=== PATIENT | female | born 1975 | race American Indian/Alaskan Native ===

== ENCOUNTER 2018-09-08 04:07 | Emergency (ER) | payer SELFPAY ==
[2018-09-08 05:04] LABS: Basophils # (Auto) 0.1 K/mm3 (0.0-0.1); Basophils % (Auto) 1.2 % (0.0-1.8); Eosinophils # (Auto) 0.2 K/mm3 (0.0-0.4); Eosinophils % (Auto) 2.8 % (0.0-4.3); Hematocrit 40.4 % (30.3-42.9); Hemoglobin 13.7 gm/dl (10.1-14.3); Lymphocytes # (Auto) 1.9 K/mm3 (1.2-5.4); Lymphocytes % (Auto) 32.4 % (13.4-35.0); Mean Corpuscular HGB Conc 34 % (30-34); Mean Corpuscular Volume 89 fl (79-97); Monocytes # (Auto) 0.9 K/mm3 (0.0-0.8); Monocytes % (Auto) 15.9 % (0.0-7.3); Platelet Count 239 K/mm3 (140-440); Red Blood Count 4.56 M/mm3 (3.65-5.03); Red Cell Distribution Width 16.1 % (13.2-15.2)
[2018-09-08 05:30] LABS: Alanine Aminotransferase 15 units/L (7-56); Albumin 4.4 g/dL (3.9-5); BUN/Creatinine Ratio 26; Blood Urea Nitrogen 18 mg/dL (7-17); Hemolysis Index 13
--- NOTE | 2018-09-08 07:42 | Emergency Department Report ---
ED Back Pain/Injury HPI - General Chief Complaint: Abdominal Pain Stated Complaint: VOMITING & PAIN IN PELVIC AREA Time Seen by Provider: 09/08/18 07:41 Source: patient Limitations: No Limitations - History of Present Illness Initial Comments: Patient is a 42-year-old -[place] female who came to the ER last night complaining of a sharp pain over her suprapubic area. She has some nausea. She's been here 9 hours and has had no vomiting. She has no vaginal bleeding or diarrhea. He has no fever. She states the pain gets worse with movement. Vital signs are normal on admission. 9 hours in the emergency room and a full workup the patient states that the pain is worse when she is at work and she needs a work note for today. Similar Symptoms Previously: No Place: home - Related Data Allergies Allergy/AdvReac Type Severity Reaction Status Date / Time No Known Allergies Allergy Verified 09/08/18 04:25 ED Review of Systems ROS: Stated complaint: VOMITING & PAIN IN PELVIC AREA Other details as noted in HPI ED Past Medical Hx - Past Medical History Medical history: hypertension Surgical history: other (cyst on neck) ED Back Pain Physical Exam - Exam General: Vital signs noted. No distress. Alert and acting appropriately. Back/Abdomen: No Abdominal Tenderness, No Perithoracic Tenderness, No Perilumbar Tenderness, No Sacroiliac Tenderness, No Flank Tenderness, No Straight Leg Raise Pain Neuro: Yes Normal Sensation, Yes Normal DTR's, Yes Normal Gait, No Motor Weakness Ed Back Pain Tests - Tests Tests: Normal UA ED Medical Decision Making - Lab Data Result diagrams: 09/08/18 04:37 09/08/18 04:37 - Medical Decision Making Labs 09/08/18 09/08/18 09/08/18 04:37 04:37 04:37 WBC 5.7 RBC 4.56 Hgb 13.7 Hct 40.4 MCV 89 MCH 30 MCHC 34 RDW 16.1 H Plt Count 239 Lymph % (Auto) 32.4 [place] % (Auto) 15.9 H Eos % (Auto) 2.8 Baso % (Auto) 1.2 Lymph # 1.9 [place] # 0.9 H Eos # 0.2 Baso # 0.1 Seg Neutrophils % 47.7 Seg Neutrophils # 2.7 Sodium 139 Potassium 3.9 Chloride 100.4 Carbon Dioxide 24 Anion Gap 19 BUN 18 H Creatinine 0.7 Estimated GFR > 60 BUN/Creatinine Ratio 26 Glucose 96 Calcium 10.0 Total Bilirubin 1.00 AST 18 ALT 15 Alkaline Phosphatase 56 Total Protein 7.7 Albumin 4.4 Albumin/Globulin Ratio 1.3 Lipase 29 HCG, Qual Negative Urine Color Urine Turbidity Urine pH Ur Specific [place] Urine Protein Urine Glucose (UA) Urine Ketones Urine Blood Urine Nitrite Urine Bilirubin Urine Urobilinogen Ur Leukocyte Esterase Urine WBC (Auto) Urine RBC (Auto) U Epithel Cells (Auto) Urine Bacteria (Auto) Urine Mucus 09/08/18 08:00 WBC RBC Hgb Hct MCV MCH MCHC RDW Plt Count Lymph % (Auto) [place] % (Auto) Eos % (Auto) Baso % (Auto) Lymph # [place] # Eos # Baso # Seg Neutrophils % Seg Neutrophils # Sodium Potassium Chloride Carbon Dioxide Anion Gap BUN Creatinine Estimated GFR BUN/Creatinine Ratio Glucose Calcium Total Bilirubin AST ALT Alkaline Phosphatase Total Protein Albumin Albumin/Globulin Ratio Lipase HCG, Qual Urine Color Yellow Urine Turbidity Slightly-cloudy Urine pH 5.0 Ur Specific [place] 1.036 H Urine Protein 30 mg/dl Urine Glucose (UA) Neg Urine Ketones 20 Urine Blood Neg Urine Nitrite Neg Urine Bilirubin Neg Urine Urobilinogen 2.0 Ur Leukocyte Esterase Neg Urine WBC (Auto) 1.0 Urine RBC (Auto) 4.0 U Epithel Cells (Auto) 4.0 Urine Bacteria (Auto) 1+ Urine Mucus 2+ Pt states she need for a work note. Patient being discharged home with [employer] follow-up. Critical care attestation.: If time is entered above; I have spent that time in minutes in the direct care of this critically ill patient, excluding procedure time. ED Disposition Clinical Impression: Abdominal pain Disposition: -01 TO HOME OR SELFCARE Is pt being admited?: No Does the pt Need Aspirin: No Condition: Stable Instructions: Abdominal Pain (ED) Additional Instructions: DIET TOLERATED MEDS ORDERED TODAY IN ER FOLLOW INSTRUCTIONS ON THE BOTTLE FOLLOW UP PCP WITHIN 48 HOURS TO ENSURE YOU ARE GETTING BETTER ACTIVITY TOLERATED MOTRIN OR TYLENOL FOR PAIN OR FEVER RETURN TO THE ER FOR WORSENING SYMPTOMS NOT RELIEVED BY YOUR MEDICATIONS. Referrals: JORDAN DUBON MD [Primary Care Provider] - 3-5 Days ALFIE HUFFMAN MD [Staff Physician] - 3-5 Days Forms: Work/School Release Form(ED) Time of Disposition: 09:27
[2018-09-08 09:00] LABS: Bacteria,Urine 1+ /HPF (Negative); Bilirubin,Urine NEG (Negative); Blood,Urine NEG (Negative); Color,Urine Yellow (Yellow); Mucus,Urine 2+ /HPF
[2018-09-08 09:56] VITALS: BP 152/92
== END 2018-09-08 09:55 | disposition home or self-care (01) ==
LOC: ED 04:07
DX: R10.2 Pelvic and perineal pain (principal); R11.0 Nausea
CPT/HCPCS: 36415; 80053; 81001; 83690; 84703; 85025; 99283

== ENCOUNTER 2019-05-01 08:24 | Emergency (ER) | payer SELFPAY ==
[2019-05-01 08:33] VITALS: BP 152/106
[2019-05-01] MEDS ORDERED: FAMOTIDINE 20 MG TAB PO ONE (08:36)
[2019-05-01] MEDS ORDERED: diphenhydrAMINE 25 MG CAP PO ONE ×2 (08:36→08:39)
[2019-05-01] MEDS ORDERED: methylPREDNISolone Sod Succinate 125 MG/2 ML INJ IM ONE (08:36)
[2019-05-01] MEDS ORDERED: methylPREDNISolone Sod Succinate 125 MG/2 ML INJ ONE (08:38)
[2019-05-01] MEDS ORDERED: FAMOTIDINE 20 MG TAB ONE (08:39)
[2019-05-01] MEDS ORDERED: IBUPROFEN 600 MG TAB PO ONE (08:44)
--- NOTE | 2019-05-01 11:04 | Emergency Department Report ---
- General Chief complaint: Allergic Reaction Stated complaint: RASH ALL OVER Time Seen by Provider: 05/01/19 10:45 Source: patient Mode of arrival: Ambulatory Limitations: No Limitations - History of Present Illness Initial comments: Patient is a 43-year-old female presents emergency room with complaints of a diffuse rash that began 2 days ago. She has associated itching. She denies any new soaps, detergents, medications, foods, lotions. She denies anyone else with the same rash. She denies sleeping in a different place. She denies any other symptoms. Patient states she has a past medical history of hypertension but has not been taking her medication. She states that she goes to [facility] for management of her blood pressure. She denies any allergies medications. - Related Data Previous Rx's Medication Instructions Recorded Last Taken Type Hydrocortisone [Hydrocortisone 1 applicatio TP TID 7 Days #1 05/01/19 Unknown Rx 2.5% OINT] oint...g. Prednisone [predniSONE 10 mg 10 mg PO .TAPER #1 tab.ds.pk 05/01/19 Unknown Rx (6-Day Pack, 21 Tabs)] diphenhydrAMINE [Benadryl CAP] 50 mg PO Q8HR PRN #20 capsule 05/01/19 Unknown Rx Allergies Allergy/AdvReac Type Severity Reaction Status Date / Time No Known Allergies Allergy Verified 05/01/19 08:38 Abscess Boil HPI - HPI Chief Complaint: Allergic Reaction Stated Complaint: RASH ALL OVER Time Seen by Provider: 05/01/19 10:45 Home Medications: Previous Rx's Medication Instructions Recorded Last Taken Type Hydrocortisone [Hydrocortisone 1 applicatio TP TID 7 Days #1 05/01/19 Unknown Rx 2.5% OINT] oint...g. Prednisone [predniSONE 10 mg 10 mg PO .TAPER #1 tab.ds.pk 05/01/19 Unknown Rx (6-Day Pack, 21 Tabs)] diphenhydrAMINE [Benadryl CAP] 50 mg PO Q8HR PRN #20 capsule 05/01/19 Unknown Rx Allergies/Adverse Reactions: Allergies Allergy/AdvReac Type Severity Reaction Status Date / Time No Known Allergies Allergy Verified 05/01/19 08:38 ED Review of Systems ROS: Stated complaint: RASH ALL OVER Other details as noted in HPI Comment: All other systems reviewed and negative ED Past Medical Hx - Past Medical History Hx Hypertension: Yes - Surgical History Additional Surgical History: cyst from neck. - Social History Smoking Status: Current Every Day Smoker Substance Use Type: None, Marijuana - Medications Home Medications: Home Medications Medication Instructions Recorded Confirmed Last Taken Type Hydrocortisone [Hydrocortisone 1 applicatio TP TID 7 Days #1 05/01/19 Unknown Rx 2.5% OINT] oint...g. Prednisone [predniSONE 10 mg 10 mg PO .TAPER #1 tab.ds.pk 05/01/19 Unknown Rx (6-Day Pack, 21 Tabs)] diphenhydrAMINE [Benadryl CAP] 50 mg PO Q8HR PRN #20 capsule 05/01/19 Unknown Rx ED Physical Exam - General Limitations: No Limitations General appearance: alert, in no apparent distress - Head Head exam: Present: atraumatic, normocephalic - Eye Eye exam: Present: normal appearance - ENT ENT exam: Present: mucous membranes moist - Neurological Exam Neurological exam: Present: alert, oriented X3 - Psychiatric Psychiatric exam: Present: normal affect, normal mood - Skin Skin exam: Present: warm, dry, other (small erythematous papules present diffusely, some areas of scabbing secondary to scratching, no necrosis, no drainage, no blistering, no sloughing of the skin) ED Course Vital Signs 05/01/19 08:31 Temperature 97.9 F Pulse Rate 92 H Respiratory 18 Rate Blood Pressure 152/106 O2 Sat by Pulse 100 Oximetry ED Medical Decision Making - Medical Decision Making Patient is a 43-year-old female presents emergency room with complaints of a diffuse rash that began 2 days ago. She has associated itching. She denies any new soaps, detergents, medications, foods, lotions. She denies anyone else with the same rash. She denies sleeping in a different place. She denies any other symptoms. Patient states she has a past medical history of hypertension but has not been taking her medication. She states that she goes to [facility] for management of her blood pressure. She denies any allergies medications. vitals with elevated blood pressure secondary to not taking medication, otherwise stable. on exam: small erythematous papules present diffusely, some areas of scabbing secondary to scratching, no necrosis, no drainage, no blistering, no sloughing of the skin. Patient given Benadryl, Solu-Medrol, Pepcid and symptoms improved. pt given prescription for Benadryl, steroids, hydrocortisone cream. Advised patient not use hydrocortisone cream more than a week. Advised patient to please use medication as prescribed. Follow-up with a primary care doctor the next 2-3 days. Please follow-up with a primary care doctor regarding your blood pressure. Take your blood pressure 3 times a day and keep a blood pressure log. Eat a low sodium diet, increase your water intake, incorporate daily exercise. Return to the emergency room for any new or worsening symptoms. - Differential Diagnosis contact derm, irritant derm, scabies, bed bugs, allergic reaction Critical care attestation.: If time is entered above; I have spent that time in minutes in the direct care of this critically ill patient, excluding procedure time. ED Disposition Clinical Impression: Rash, Elevated blood pressure reading Disposition: TO HOME OR SELFCARE Is pt being admited?: No Does the pt Need Aspirin: No Condition: Stable Instructions: Acute Rash (ED), Contact Dermatitis (ED) Additional Instructions: do not use hydrocortisone cream more than a week. please use medication as prescribed. Follow-up with a primary care doctor the next 2-3 days. Please follow-up with a primary care doctor regarding your blood pressure. Take your blood pressure 3 times a day and keep a blood pressure log. Eat a low sodium diet, increase your water intake, incorporate daily exercise. Return to the emergency room for any new or worsening symptoms. Prescriptions: diphenhydrAMINE [Benadryl CAP] 50 mg PO Q8HR PRN #20 capsule PRN Reason: itching Hydrocortisone [Hydrocortisone 2.5% OINT] 1 applicatio TP TID 7 Days #1 oint...g. Prednisone [predniSONE 10 mg (6-Day Pack, 21 Tabs)] 10 mg PO .TAPER #1 tab.ds.pk Referrals: [facility] [Outside] - 2-3 Days Forms: Work/School Release Form(ED) Time of Disposition: 11:05 Print Language: KYRGYZ
== END 2019-05-01 11:16 | disposition home or self-care (01) ==
LOC: ED 08:24
DX: R21 Rash and other nonspecific skin eruption (principal); I10 Essential (primary) hypertension; F17.200 Nicotine dependence, unspecified, uncomplicated; F12.10 Cannabis abuse, uncomplicated; Z79.899 Other long term (current) drug therapy
CPT/HCPCS: 96372; 99282; J2930

== ENCOUNTER 2021-05-30 11:25 | Emergency (ER) | payer SELFPAY ==
[2021-05-30 11:56] VITALS: BP 121/67
[2021-05-30] MEDS ORDERED: PANTOPRAZOLE 40 MG TAB PO ONE (11:58)
[2021-05-30] MEDS ORDERED: ACETAMINOPHEN 500 MG TAB PO ONE (11:58)
--- NOTE | 2021-05-30 11:59 | Emergency Department Report ---
ED General Adult HPI - General Chief complaint: Chest Pain Stated complaint: Chest wall pain PUI?: No Time Seen by Provider: 05/30/21 11:39 Source: patient, RN notes reviewed, old records reviewed Mode of arrival: Ambulatory Limitations: No Limitations - History of Present Illness Initial comments: The patient was evaluated in the emergency department for symptoms described in the history of present illness. He/she was evaluated in the context of the global COVID-19 pandemic, which necessitated consideration that the patient might be at risk for infection with the virus that causes COVID-19. Institutional protocols and algorithms that pertain to the evaluation of patients at risk for COVID-19 are in a state of rapid change based on information released by regulatory bodies including the CDC and federal and state organizations. These policies and algorithms were followed during the patient's care in the emergency department. Please note that these policies, procedures and recommendations changed on a rapid basis. During the history and physical examination, I am chaperoned by security operations analyst Kaiser Estrada Primary CARE doctor: [facility] The patient is a 45-year-old female, who consumes tobacco, who presents to the ER with complaint of 2 to 3 days constant anterior and central left-sided chest wall pain. The pain does not radiate to the back, arms or neck. There is no vomiting or diaphoresis or exertional shortness of breath. The pain increases with palpation, and laying flat. It decreases when sitting up and with rest. There is no personal family history of DVT/PE/CO/CAD. Patient denies travel, surgery, immobilization, oral contraceptive use, DVT/PE risk factors. Patient has not attempted any [id number] analgesia. 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 She denies additional injuries and complaints -: Gradual, days(s) Location: chest Severity scale (0 -10): 5 Quality: aching Consistency: constant Improves with: rest Worsens with: movement (Movement and palpation) Associated Symptoms: denies other symptoms - Related Data Previous Rx's Medication Instructions Recorded Last Taken Type Acetaminophen [Non-Aspirin Extra 500 mg PO Q6HR PRN #30 tablet 05/30/21 Unknown Rx Strength] Ibuprofen [Motrin] 600 mg PO Q8H PRN #30 tablet 05/30/21 Unknown Rx Nicotine Polacrilex [Nicotine Gum] 4 mg BC PRN #1 pack 05/30/21 Unknown Rx Allergies Allergy/AdvReac Type Severity Reaction Status Date / Time No Known Allergies Allergy Verified 05/30/21 11:57 ED Review of Systems ROS: Stated complaint: CHEST PAIN Other details as noted in HPI Constitutional: denies: fever Eyes: denies: eye discharge ENT: denies: epistaxis Respiratory: denies: cough, shortness of breath Cardiovascular: chest pain Gastrointestinal: denies: abdominal pain, nausea, vomiting, diarrhea, hematem esis, melena, hematochezia Genitourinary: denies: dysuria Neurological: denies: weakness Psychiatric: anxiety Hematological/Lymphatic: denies: easy bleeding ED Past Medical Hx - Past Medical History Hx Hypertension: Yes - Surgical History Additional Surgical History: cyst from neck. - Social History Smoking Status: Current Every Day Smoker Substance Use Type: None, Marijuana - Medications Home Medications: Home Medications Medication Instructions Recorded Confirmed Last Taken Type Acetaminophen [Non-Aspirin Extra 500 mg PO Q6HR PRN #30 tablet 05/30/21 Unknown Rx Strength] Ibuprofen [Motrin] 600 mg PO Q8H PRN #30 tablet 05/30/21 Unknown Rx Nicotine Polacrilex [Nicotine Gum] 4 mg BC PRN #1 pack 05/30/21 Unknown Rx ED Physical Exam - General Limitations: No Limitations General appearance: alert, anxious - Head Head exam: Present: atraumatic, normocephalic - Eye Eye exam: Present: normal appearance, EOMI. Absent: nystagmus - ENT ENT exam: Present: normal exam, normal orophraynx, mucous membranes moist, normal external ear exam - Neck Neck exam: Present: normal inspection, full ROM. Absent: tenderness, meningismus - Respiratory Respiratory exam: Present: normal lung sounds bilaterally, chest wall tenderness, other (Reproducible chest wall tenderness. Chaperoned by security operations analyst Kaiser Estrada). Absent: respiratory distress, wheezes, rales, rhonchi, stridor - Cardiovascular Cardiovascular Exam: Present: regular rate, normal rhythm, normal heart sounds. Absent: bradycardia, tachycardia, irregular rhythm, systolic murmur, diastolic murmur, rubs, gallop - GI/Abdominal GI/Abdominal exam: Present: soft. Absent: distended, tenderness, guarding, rebound, rigid, pulsatile mass - Extremities Exam Extremities exam: Present: normal inspection, full ROM, other (2+ pulses noted in the bilateral upper and lower extremities. There is no palpable cord. negative Homans sign. Muscular compartments are soft. The pelvis is stable.). Absent: pedal edema, calf tenderness - Back Exam Back exam: Present: normal inspection. Absent: tenderness, CVA tenderness (R), CVA tenderness (L), paraspinal tenderness, vertebral tenderness - Neurological Exam Neurological exam: Present: alert, oriented X3, normal gait, other (No facial droop. Tongue midline. Extraocular movements intact bilaterally. Facial sensation intact to light touch in V1, V2, V3 distribution bilaterally. 5 and a 5 strength in 4 extremities. Sensation intact to light touch in 4 extremities.). Absent: motor sensory deficit - Psychiatric Psychiatric exam: Present: anxious - Skin Skin exam: Present: warm, dry, intact, normal color. Absent: rash ED Course Vital Signs 05/30/21 05/30/21 11:29 11:55 Temperature 98.7 F 98.4 F Pulse Rate 82 69 Respiratory 18 16 Rate Blood Pressure 171/102 121/67 [Right] O2 Sat by Pulse 98 99 Oximetry - Reevaluation(s) Reevaluation #1: 05/30/21 12:29 Differential diagnosis, including but not limited to: GERD, gastritis, hiatal hernia, pneumonia, costochondritis, coronary artery disease Assessment and plan: 45-year-old female, who is not currently tachycardic, tachypneic or hypoxic, who denies DVT and pulmonary embolism risk factors, PERC negative ,who is low risk by Wells criteria for pulmonary embolism, EKG not consistent with STEMI in the context of 2 to 3 days and constant chest wall pain, troponin negative x1 in the context of days of symptoms. Given that patient has been having pain for greater than 8 hours (2 to 3 days), myocardial infarction may be ruled out with 1 set of troponin/cardiac enzymes as per the [employer] clinical policy. Patient has equal pulses in the upper and lower extremities, no pulsatile abdominal mass, and an unremarkable x-ray of the chest, therefore, aortic disease is very unlikely. Patient at low risk for major adverse cardiac event as per heart score. Given reproducibility, history and physical, do not have a high suspicion for GERD, gastritis, hiatal hernia at this time. Pneumonia is unlikely given history, physical, and x-ray findings. This is most likely costochondritis. Reassurance provided. Advised to follow- up with outpatient cardiology and/or primary care within the next 2 to 3 days. Also counseled to discontinue tobacco consumption 05/30/21 14:20 X-ray of the chest unremarkable. Laboratory studies unremarkable. Patient felt improved after pain medication. Resting comfortably in stretcher, in no acute distress. Suitable to follow-up as an outpatient. ED Medical Decision Making - Lab Data Result diagrams: 05/30/21 12:54 05/30/21 12:54 Vital Signs 05/30/21 05/30/21 11:29 11:55 Temperature 98.7 F 98.4 F Pulse Rate 82 69 Respiratory 18 16 Rate Blood Pressure 171/102 121/67 [Right] O2 Sat by Pulse 98 99 Oximetry Vital Signs 05/30/21 05/30/21 11:29 11:55 Temperature 98.7 F 98.4 F Pulse Rate 82 69 Respiratory 18 16 Rate Blood Pressure 171/102 121/67 [Right] O2 Sat by Pulse 98 99 Oximetry Lab Results 05/30/21 05/30/21 05/30/21 Range/Units 12:54 12:54 12:54 WBC 5.1 (4.5-11.0) K/mm3 RBC 4.52 (3.65-5.03) M/mm3 Hgb 13.4 (10.1-14.3) gm/dl Hct 41.0 (30.3-42.9) % MCV 91 (79-97) fl MCH 30 (28-32) pg MCHC 33 (30-34) % RDW 16.7 H (13.2-15.2) % Plt Count 245 (140-440) K/mm3 PT (12.2-14.9) Sec. INR (0.87-1.13) Sodium 136 L (137-145) mmol/L Potassium 3.8 (3.6-5.0) mmol/L Chloride 101.7 (98-107) mmol/L Carbon Dioxide 24 (22-30) mmol/L Anion Gap 14 mmol/L BUN 15 (7-17) mg/dL Creatinine 0.5 L (0.6-1.2) mg/dL Estimated GFR > 60 ml/min BUN/Creatinine Ratio 30 % Glucose 81 (65-100) mg/dL Calcium 10.0 (8.4-10.2) mg/dL Troponin T < 0.010 (0.00-0.029) ng/mL HCG, Qual Negative (Negative) 05/30/21 Range/Units Unknown WBC (4.5-11.0) K/mm3 RBC (3.65-5.03) M/mm3 Hgb (10.1-14.3) gm/dl Hct (30.3-42.9) % MCV (79-97) fl MCH (28-32) pg MCHC (30-34) % RDW (13.2-15.2) % Plt Count (140-440) K/mm3 PT 12.1 L (12.2-14.9) Sec. INR 0.81 L (0.87-1.13) Sodium (137-145) mmol/L Potassium (3.6-5.0) mmol/L Chloride (98-107) mmol/L Carbon Dioxide (22-30) mmol/L Anion Gap mmol/L BUN (7-17) mg/dL Creatinine (0.6-1.2) mg/dL Estimated GFR ml/min BUN/Creatinine Ratio % Glucose (65-100) mg/dL Calcium (8.4-10.2) mg/dL Troponin T (0.00-0.029) ng/mL HCG, Qual (Negative) - EKG Data -: EKG Interpreted by Ks EKG shows normal: sinus rhythm Rate: normal - EKG Data When compared to previous EKG there are: previous EKG unavailable 05/30/21 12:29 The EKG is interpreted at 11: 46 Sinus rhythm, 97 bpm. Normal axis, normal intervals, high left ventricular voltage and motion artifact. Not a STEMI. No prior for comparison. Normal P wave axis. - Radiology Data Radiology results: pending, report reviewed, image reviewed CHEST 2 VIEWS INDICATION / CLINICAL INFORMATION: Chest Pain. COMPARISON: None available. FINDINGS: SUPPORT DEVICES: None. HEART / MEDIASTINUM: No significant abnormality. LUNGS / PLEURA: No significant pulmonary or pleural abnormality. No pneumothorax. ADDITIONAL FINDINGS: No significant additional findings. IMPRESSION: 1. No acute findings. Signer Name: Caleb Santos MD Si gned: 05/30/2021 12:53 PM Workstation Name: [email or web address] Critical care attestation.: If time is entered above; I have spent that time in minutes in the direct care of this critically ill patient, excluding procedure time. ED Disposition Clinical Impression: Chest wall pain, Encounter for tobacco use cessation counseling Disposition: HOME / SELF CARE / HOMELESS Is pt being admited?: No Does the pt Need Aspirin: No Condition: Good Instructions: Costochondritis Additional Instructions: Please take the pain medications as needed and directed. Discontinue tobacco consumption/smoking, and use the nicotine gum to assist with tobacco cessation. Recommend follow-up with your primary care doctor or dividend clerk within the next 3 to 4 days for repeat checkup and evaluation. Avoid consumption of heavy and spicy foods and alcohol. Advance diet as tolerated. Please return to the emergency room right away with new pain, worsened pain, migration of pain, projectile vomiting, change in mental status, confusion, inability tolerate liquid feeds, new, worsened or different symptoms not present on the initial emergency room evaluation Prescriptions: Ibuprofen [Motrin] 600 mg PO Q8H PRN #30 tablet PRN Reason: Pain Nicotine Polacrilex [Nicotine Gum] 4 mg BC PRN #1 pack Acetaminophen [Non-Aspirin Extra Strength] 500 mg PO Q6HR PRN #30 tablet PRN Reason: Pain , Severe (7-10) Referrals: [facility] [Provider Group] - 3-5 Days [facility] [Provider Group] - 3-5 Days [facility] [Provider Group] - 3-5 Days Forms: Work/School Release Form(ED) Heart Score - HEART Score History: Slightly suspicious EKG: Non-specific Age: < 45 Risk factors: 1-2 risk factors Troponin: < normal limit HEART Score: 2 - EKG Read Time Time EKG Completed: 11:45 EKG Read Time: 11:45 - Critical Actions Critical Actions: 0-3 pts:0.9-1.7%risk of adverse cardiac event.Candidate for discharge
[2021-05-30 13:09] LABS: Hemoglobin 13.4 gm/dl (10.1-14.3); Mean Corpuscular HGB Conc 33 % (30-34); Mean Corpuscular Volume 91 fl (79-97); Platelet Count 245 K/mm3 (140-440); Red Blood Count 4.52 M/mm3 (3.65-5.03); Red Cell Distribution Width 16.7 % (13.2-15.2)
[2021-05-30 13:20] LABS: INR 0.81 (0.87-1.13)
[2021-05-30 13:41] LABS: Blood Urea Nitrogen 15 mg/dL (7-17); Hemolysis Index 10
[2021-05-30 13:43] LABS: BUN/Creatinine Ratio 30
--- NOTE | 2021-05-30 13:57 | XRay Report ---
CHEST 2 VIEWS INDICATION / CLINICAL INFORMATION: Chest Pain. COMPARISON: None available. FINDINGS: SUPPORT DEVICES: None. HEART / MEDIASTINUM: No significant abnormality. LUNGS / PLEURA: No significant pulmonary or pleural abnormality. No pneumothorax. ADDITIONAL FINDINGS: No significant additional findings. IMPRESSION: 1. No acute findings. Signer Name: Caleb Santos MD Signed: 05/30/2021 1:53 PM Workstation Name: [id number]
[2021-05-30] MEDS ORDERED: IBUPROFEN 400 MG TAB PO ONE (14:20)
--- NOTE | 2021-06-01 14:27 | Electrocardiograph Report ---
[facility] Test Date: 2021-05-30 Test Time: 11:45:03 Pat Name: LAURIE DHILLON Department: Room: Gender: F Commercial Marketing Specialist: JALEN : 1975 Requested By: EDWARD KELLY Order Number: [id number] Reading MD: Steff Rose Measurements Intervals Brooks Rate: 97 P: 80 WV: 150 QRS: 70 QRSD: 74 T: 64 QT: 330 QTc: 419 Interpretive Statements Sinus rhythm Right atrial enlargement Consider left ventricular hypertrophy No previous ECG available for comparison Electronically Signed On 06-01-2021 14:27:38 EST by Steff Rose
== END 2021-05-30 15:11 | disposition home or self-care (01) ==
LOC: ED 11:25
DX: R07.89 Other chest pain (principal); Z71.6 Tobacco abuse counseling; I10 Essential (primary) hypertension; F17.200 Nicotine dependence, unspecified, uncomplicated; Z79.899 Other long term (current) drug therapy; Z98.890 Other specified postprocedural states
CPT/HCPCS: 36415; 71046; 80048; 84484; 84703; 85027; 85610; 93005; 93010; 99284

== ENCOUNTER 2021-06-22 12:09 | Emergency (ER) | payer SELFPAY ==
[2021-06-22 12:15] VITALS: BP 112/81
[2021-06-22] MEDS ORDERED: ASPIRIN 325 MG TAB PO ONE (12:22)
[2021-06-22] MEDS ORDERED: HYDROcodone/ACETAMINOPHEN 5-325 MG TAB PO ONE (12:22)
--- NOTE | 2021-06-22 12:59 | XRay Report ---
CHEST 2 VIEWS INDICATION: Chest Pain. COMPARISON: 05/30/2021 FINDINGS: Support devices: None. Heart: Within normal limits. Lungs/pleura: No acute air space or interstitial disease. No pneumothorax. Additional findings: None. IMPRESSION: No acute findings. No change since 05/30/2021. Signer Name: Ivan Goldman Jr, MD Signed: 06/22/2021 12:55 PM Workstation Name: [id number]
[2021-06-22 13:16] LABS: Eosinophils # (Auto) 0.1 K/mm3 (0.0-0.4); Eosinophils % (Auto) 1.6 % (0.0-4.3); Hematocrit 40.5 % (30.3-42.9); Hemoglobin 13.3 gm/dl (10.1-14.3); Lymphocytes # (Auto) 1.3 K/mm3 (1.2-5.4); Lymphocytes % (Auto) 30.1 % (13.4-35.0); Mean Corpuscular HGB Conc 33 % (30-34); Mean Corpuscular Volume 92 fl (79-97); Monocytes # (Auto) 0.6 K/mm3 (0.0-0.8); Monocytes % (Auto) 14.5 % (0.0-7.3); Platelet Count 228 K/mm3 (140-440); Red Blood Count 4.38 M/mm3 (3.65-5.03); Red Cell Distribution Width 16.5 % (13.2-15.2)
[2021-06-22 13:33] LABS: Alanine Aminotransferase 15 units/L (7-56); Albumin 4.3 g/dL (3.9-5); Blood Urea Nitrogen 13 mg/dL (7-17); Hemolysis Index 16
[2021-06-22 14:10] LABS: BUN/Creatinine Ratio 19
--- NOTE | 2021-06-22 14:19 | Emergency Department Report ---
ED Chest Pain HPI - General Chief Complaint: Chest Pain Stated Complaint: CHEST PAIN Time Seen by Provider: 06/22/21 12:17 Source: patient Mode of arrival: Ambulatory Limitations: No Limitations - History of Present Illness Initial Comments: pt reports sudden onset chest pain this morning, describes as constant and sharp, points to sternal area, no radiation hapenned at work, hapenned before MD Complaint: chest pain -: Sudden, hour(s) Onset: during rest, during exertion Pain Location: left chest Pain Radiation: none Severity scale (0 -10): 8 Quality: sharp Consistency: intermittent - Related Data Previous Rx's Medication Instructions Recorded Last Taken Type Acetaminophen [Non-Aspirin Extra 500 mg PO Q6HR PRN #30 tablet 05/30/21 Unknown Rx Strength] Ibuprofen [Motrin] 600 mg PO Q8H PRN #30 tablet 05/30/21 Unknown Rx Nicotine Polacrilex [Nicotine Gum] 4 mg BC PRN #1 pack 05/30/21 Unknown Rx Allergies Allergy/AdvReac Type Severity Reaction Status Date / Time No Known Allergies Allergy Verified 06/22/21 12:15 Heart Score - HEART Score History: Slightly suspicious EKG: Normal Age: < 45 Risk factors: 1-2 risk factors Troponin: < normal limit HEART Score: 1 - EKG Read Time Time EKG Completed: 12:25 EKG Read Time: 12:26 - Critical Actions Critical Actions: 0-3 pts:0.9-1.7%risk of adverse cardiac event.Candidate for discharge ED Review of Systems ROS: Stated complaint: CHEST PAIN Other details as noted in HPI Constitutional: denies: chills, fever Eyes: denies: eye pain, eye discharge, vision change ENT: denies: ear pain, throat pain Respiratory: denies: cough, shortness of breath, wheezing Cardiovascular: denies: chest pain, palpitations Endocrine: no symptoms reported Gastrointestinal: denies: abdominal pain, nausea, diarrhea Genitourinary: denies: urgency, dysuria, discharge Musculoskeletal: denies: back pain, joint swelling, arthralgia Skin: denies: rash, lesions Neurological: denies: headache, weakness, paresthesias Psychiatric: denies: anxiety, depression Hematological/Lymphatic: denies: easy bleeding, easy bruising ED Past Medical Hx - Past Medical History Previous Medical History?: Yes Hx Hypertension: Yes - Surgical History Additional Surgical History: cyst from neck. - Social History Smoking Status: Current Every Day Smoker Substance Use Type: None - Medications Home Medications: Home Medications Medication Instructions Recorded Confirmed Last Taken Type Acetaminophen [Non-Aspirin Extra 500 mg PO Q6HR PRN #30 tablet 05/30/21 Unknown Rx Strength] Ibuprofen [Motrin] 600 mg PO Q8H PRN #30 tablet 05/30/21 Unknown Rx Nicotine Polacrilex [Nicotine Gum] 4 mg BC PRN #1 pack 05/30/21 Unknown Rx ED Physical Exam - General Limitations: No Limitations General appearance: alert, in no apparent distress - Head Head exam: Present: atraumatic, normocephalic - Eye Eye exam: Present: normal appearance - ENT ENT exam: Present: mucous membranes moist - Neck Neck exam: Present: normal inspection - Respiratory Respiratory exam: Present: normal lung sounds bilaterally, chest wall tenderness. Absent: respiratory distress - Cardiovascular Cardiovascular Exam: Present: regular rate, normal rhythm. Absent: systolic murmur, diastolic murmur, rubs, gallop - GI/Abdominal GI/Abdominal exam: Present: soft, normal bowel sounds - Extremities Exam Extremities exam: Present: normal inspection - Back Exam Back exam: Present: normal inspection - Neurological Exam Neurological exam: Present: alert, oriented X3 - Psychiatric Psychiatric exam: Present: normal affect, normal mood - Skin Skin exam: Present: warm, dry, intact, normal color. Absent: rash ED Course Vital Signs 06/22/21 12:12 Temperature 98.4 F Pulse Rate 83 Respiratory 18 Rate Blood Pressure 112/81 O2 Sat by Pulse 99 Oximetry - Reevaluation(s) Reevaluation #1: 06/22/21 14:19 wok up neg , trop negative vss nod sitress pain free ,,will refer to Card OP JIMI score - Jimi Score Age > 65: (0) No Aspirin use within the Past 7 Days: (0) No 3 or more CAD Risk Factors: (0) No 2 or more Angina events in past 24 hrs: (0) No Known CAD with more than 50% Stenosis: (0) No Elevated Cardiac Markers: (0) No ST Deviation Greater than 0.5mm: (0) No JIMI Score: 0 ED Medical Decision Making - Lab Data Result diagrams: 06/22/21 12:28 06/22/21 12:28 Critical care attestation.: If time is entered above; I have spent that time in minutes in the direct care of this critically ill patient, excluding procedure time. ED Disposition Clinical Impression: Chest pain Disposition: 01 HOME / SELF CARE / HOMELESS Is pt being admited?: No Does the pt Need Aspirin: No Condition: Stable Instructions: Nonspecific Chest Pain, Adult Referrals: WHIT GUNDERSON MD [Primary Care Provider] - 3-5 Days
--- NOTE | 2021-06-23 09:29 | Electrocardiograph Report ---
[facility] Test Date: 2021-06-22 Test Time: 12:25:06 Pat Name: LAURIE DHILLON Department: Room: Gender: F Network Admin: KAYLIN : 1975 Requested By: AMSON DUENAS Order Number: [id number] Reading MD: Dasha Vann Measurements Intervals [place] Rate: 77 P: 69 ME: 148 QRS: 62 QRSD: 76 T: 44 QT: 356 QTc: 404 Interpretive Statements Sinus rhythm Consider left ventricular hypertrophy Compared to ECG 05/30/2021 11:45:03 Atrial abnormality no longer present Electronically Signed On 06-23-2021 9:29:00 EST by Dasha Vann
== END 2021-06-22 14:32 | disposition home or self-care (01) ==
LOC: ED 12:09
DX: R07.89 Other chest pain (principal); I10 Essential (primary) hypertension; F17.200 Nicotine dependence, unspecified, uncomplicated
CPT/HCPCS: 36415; 71046; 80053; 84484; 85025; 93005; 93010; 99284